=== PATIENT | male | born 1980 | race Caucasian/White ===

== ENCOUNTER 2023-05-13 09:27 | Outpatient (CLI) | payer BC ==
[2023-05-13] MEDS ORDERED: Iopamidol 300 61% 100 ML VIAL FS ONE (13:10)
== END 2023-05-13 09:28 | disposition home or self-care (01) ==
LOC: CSHCT 09:27
PROVIDERS: ATTEND Internal Medicine
DX: C62.90 Malignant neoplasm of unspecified testis, unspecified whether descended or undescended (principal); R91.1 Solitary pulmonary nodule; K80.20 Calculus of gallbladder without cholecystitis without obstruction; K76.0 Fatty (change of) liver, not elsewhere classified
CPT/HCPCS: 71260; 74177; Q9967

== ENCOUNTER 2024-03-23 08:55 | Outpatient (CLI) | payer BC ==
[2024-03-23] MEDS ORDERED: Iopamidol 370 76% 100 ML VIAL ONE (09:22)
== END 2024-03-23 08:56 | disposition home or self-care (01) ==
LOC: CSHCT 08:55
PROVIDERS: ATTEND Internal Medicine
DX: C62.90 Malignant neoplasm of unspecified testis, unspecified whether descended or undescended (principal); R91.1 Solitary pulmonary nodule
CPT/HCPCS: 71260; 74177; Q9967

== ENCOUNTER 2024-07-20 14:34 | Outpatient (CLI) | payer BC ==
[~2024-07-20 14:34] MED LIST: Iopamidol 300 61% 100 ML VIAL FS ONE
== END 2024-07-20 14:35 | disposition home or self-care (01) ==
LOC: CSHCT 14:34
PROVIDERS: ATTEND Internal Medicine
DX: C62.90 Malignant neoplasm of unspecified testis, unspecified whether descended or undescended (principal); R91.1 Solitary pulmonary nodule; K63.9 Disease of intestine, unspecified
CPT/HCPCS: 71260; 74177